=== PATIENT | female | born 1965 | race Caucasian/White ===

== ENCOUNTER → 2020-06-24 | Outpatient (CLI) | payer BC ==
[~2020-06-24] MED LIST: ALIVE WOMEN'S1 EAC2 PO; DITROPAN 5 MG TA5 MG PO; DOCUSATE SODIU250 MG PO; HYDROCODONE-AC1 EACH PO; IBUPROFEN600 MG PO; PAXIL40 MG PO; VALIUM10 MG PO; WELLBUTRIN SR150 M1 PO; rexulti; rexulti PO
== END ==
LOC: MAMO 01-24 15:00
DX: Z12.31 Encounter for screening mammogram for malignant neoplasm of breast (principal)
CPT/HCPCS: 77063; 77067

== ENCOUNTER 2020-08-20 23:26 | Emergency (ER) | payer BC ==
[2020-08-21 04:16] LABS: HEMOGLOBIN 14.5 gm/dl (12.3-15.3); RED BLOOD COUNT 4.54 M/UL (4.00-5.10); WHITE BLOOD COUNT 6.4 K/UL (4.5-11.0)
[2020-08-21 04:37] LABS: BUN/CREATININE RATIO 24 (0-10)
== END 2020-08-21 06:15 | disposition home or self-care (01) ==
LOC: ER1 23:26
PROVIDERS: Family Medicine
DX: R07.9 Chest pain, unspecified (principal); R51.9 Headache, unspecified; F17.210 Nicotine dependence, cigarettes, uncomplicated; Z79.899 Other long term (current) drug therapy
CPT/HCPCS: 71045; 80048; 82550; 82553; 83874; 84484; 85025; 93005; 99285

== ENCOUNTER → 2020-09-03 | Outpatient (CLI) | payer BC, OTHER ==
[2020-09-03 11:54] LABS: HEMOGLOBIN 15.6 gm/dl (12.3-15.3); RED BLOOD COUNT 4.83 M/UL (4.00-5.10); WHITE BLOOD COUNT 5.2 K/UL (4.5-11.0)
== END ==
LOC: OPSV2 10:38
PROVIDERS: Obstetrics & Gynecology
DX: Z01.812 Encounter for preprocedural laboratory examination (principal); N81.9 Female genital prolapse, unspecified
CPT/HCPCS: 36415; 81001; 85025

== ENCOUNTER 2020-09-07 06:33 | Day surgery (SDC) | payer BC, OTHER ==
[~2020-09-07] VITALS: Ht 167.6 cm; Wt 80.7 kg
[2020-09-07] MEDS ORDERED: WELLBUTRIN SR150 M1 PO (07:18)
[2020-09-07] MEDS ORDERED: PAXIL40 MG PO (07:19)
[2020-09-07] MEDS ORDERED: VALIUM10 MG PO (07:19)
[2020-09-07] MEDS ORDERED: rexulti (07:21)
[2020-09-07] MEDS ORDERED: rexulti PO (07:22)
[2020-09-07] MEDS ORDERED: HYDROCODONE-AC1 EACH PO (08:16)
[2020-09-07] MEDS ORDERED: IBUPROFEN600 MG PO (08:16)
[2020-09-07] MEDS ORDERED: DITROPAN 5 MG TA5 MG PO (08:16)
[2020-09-07] MEDS ORDERED: DOCUSATE SODIU250 MG PO (08:16)
[2020-09-07] MEDS ORDERED: ALIVE WOMEN'S1 EAC2 PO (17:24)
--- NOTE | 2020-09-08 13:54 | NUR ---
INSTRUCTED PATIENT ON FOLLOW UP APPOINTMENTS, MEDS E-SCRIPTED TO PHARMACY [facility]. INFORMATION GIVEN ON PROCEDURES DONE. VERBALIZED UNDERSTANDING. ALEXANDRA LOUIS R.N.
== END 2020-09-08 14:19 | disposition home or self-care (01) ==
LOC: OR 06:33 → MED SURG 4 06:33 → OR 07:30 → MED SURG 4 16:55 → OR 09-08 14:19
DX: N81.3 Complete uterovaginal prolapse (principal); N87.1 Moderate cervical dysplasia; N80.0 Endometriosis of uterus; F41.0 Panic disorder [episodic paroxysmal anxiety]; F32.9 Major depressive disorder, single episode, unspecified; F17.210 Nicotine dependence, cigarettes, uncomplicated; Z79.899 Other long term (current) drug therapy
CPT/HCPCS: 84703; C1769; J1100; J1885; J2001; J2250; J2270; J2405; J2704; J2710; J3010; J7050; J7120

== ENCOUNTER → 2021-02-10 | Outpatient (CLI) | payer BC, OTHER ==
[~2021-02-10] MED LIST changes: +MECLIZINE HCL25 MG PO; +REXULTI1 MG PO; +TRAZODONE HCL50 MG PO
[2021-02-10 08:55] LABS: HEMOGLOBIN 15.8 gm/dl (12.3-15.3); RED BLOOD COUNT 4.83 M/UL (4.00-5.10); WHITE BLOOD COUNT 5.3 K/UL (4.5-11.0)
== END ==
LOC: OPSV2 08:00
PROVIDERS: Obstetrics & Gynecology
DX: Z01.812 Encounter for preprocedural laboratory examination (principal); R32 Unspecified urinary incontinence
CPT/HCPCS: 36415; 81001; 85025

== ENCOUNTER → 2021-02-11 | Day surgery (SDC) | payer BC, OTHER ==
[~2021-02-11] VITALS: Ht 167.6 cm; Wt 79.8 kg
== END | disposition home or self-care (01) ==
LOC: OR 06:36
DX: N39.46 Mixed incontinence (principal); F17.210 Nicotine dependence, cigarettes, uncomplicated; N81.10 Cystocele, unspecified; Z20.822 Contact with and (suspected) exposure to COVID-19; F41.0 Panic disorder [episodic paroxysmal anxiety]; F32.9 Major depressive disorder, single episode, unspecified
CPT/HCPCS: 71045; 93005; 94664; C1769; C1771; J0690; J1100; J1885; J2001; J2250; J2405; J2704; J3010; J7120

== ENCOUNTER → 2021-05-17 | Outpatient (CLI) | payer BC ==
[~2021-05-17] VITALS: Ht 167.6 cm; Wt 76.2 kg
== END ==
LOC: EDSTATUS 08:38 → ER1 16:06 → EROP 16:06
DX: U07.1 COVID-19 (principal)
CPT/HCPCS: 96365